=== PATIENT | female | born 1960 | race Caucasian/White ===

== ENCOUNTER 2020-12-04 15:30 | Emergency (ER) | payer MEDICAID, MEDICARE ==
[~2020-12-04 15:30] MED LIST: CLON0.1T2 PO
== END 2020-12-04 19:05 | disposition left against medical advice (07) ==
LOC: ER 15:31
DX: R07.89 Other chest pain (principal); Z53.21 Procedure and treatment not carried out due to patient leaving prior to being seen by health care provider
CPT/HCPCS: 93005